=== PATIENT | female | born 1990 | race Two or more races ===

== ENCOUNTER 2021-02-01 15:32 | Emergency (ER) | payer OTHER ==
[~2021-02-01] VITALS: Ht 160 cm; Wt 54.4 kg
--- NOTE | 2021-02-01 16:08 | NUR ---
Dr Phillips [place] [facility] [place], chaperoned by Tegan MCNAMARA. Pt's is also in attendance.
[2021-02-01] MEDS ORDERED: HYDR-3972 PO ×2 (16:25→16:27)
[2021-02-01] MEDS ORDERED: IBUP-1955 PO (16:25)
[2021-02-01] MEDS ORDERED: CLIN300C12 PO (16:25)
[2021-02-01] MEDS ORDERED: CLINDAMYCIN HCL 150 MG CAPSULE PO ONE (16:30)
[2021-02-01] MEDS ORDERED: IBUPROFEN 600 MG TABLET PO ONE (16:30)
[2021-02-01] MEDS ORDERED: IBUPROFEN 600 MG TABLET ONE (16:38)
[2021-02-01] MEDS ORDERED: CLINDAMYCIN HCL 150 MG CAPSULE ONE (16:38)
[2021-02-01 16:58] VITALS: BP 120/78
== END 2021-02-01 16:59 | disposition home or self-care (01) ==
LOC: ER 15:36
DX: O91.22 Nonpurulent mastitis associated with the puerperium (principal)
CPT/HCPCS: A4663